=== PATIENT | female | born 1965 | race African-American/Black ===

== ENCOUNTER 2017-02-09 16:17 | Emergency (ER) | payer OTHER ==
[~2017-02-09] VITALS: Ht 172.7 cm; Wt 78.6 kg
[~2017-02-09 16:17] MED LIST: ADULT LOW DOSE81 M1 PO; AUGMENTIN875 MG PO; BENTYL10 MG PO; CIPRO500 MG PO; FLAGYL500 MG PO; GLUCOPHAGE1000 M1 PO; MAXZIDE 37.5 M1 EACH PO; METAMUCIL PACKE1 PKT PO; MICRONASE5 MG PO; SIMVASTATIN40 M1 PO; SYNTHROID PO; SYNTHROID175 MCG PO; ZESTRIL,PRINIVIL5 MG PO; ZOFRAN ODT4 MG PO
[2017-02-09 18:12] LABS: HEMATOCRIT 40.2 % (36.0-46.0); MCH 28.8 PG (29.0-34.0); MCHC 34.6 G/DL (30.0-36.0); MCV 83.4 FL (83-99); MEAN PLAT.VOLUME 10.1 uM^3 (9.5-12.4); PLATELET COUNT 334 K/uL (156-360); RBC DIS.WIDTH-SD 36.1 % (39-53); RED BLOOD COUNT 4.82 M/uL (3.80-5.20)
[2017-02-09 18:24] LABS: CHLORIDE 102 mEq/L (99-109); POTASSIUM 3.6 mEq/L (3.7-5.4); SODIUM 136 mEq/L (136-147)
[2017-02-09 18:26] LABS: GLUCOSE 314 mg/dL (70-99)
[2017-02-09 18:27] LABS: ANION GAP 11 MEQ/L (2-14)
[2017-02-09 18:30] LABS: GFR ESTIMATE (CALCULATED) > 59 mL/min/
[2017-02-09 18:31] LABS: UREA NITROGEN (BUN) 11 mg/dL (9-23)
[2017-02-09] MEDS ORDERED: BENTYL20 MG PO (23:26)
[2017-02-09] MEDS ORDERED: FLAGYL500 MG PO (23:26)
[2017-02-09 23:49] VITALS: BP 171/84
== END 2017-02-09 23:50 | disposition home or self-care (01) ==
LOC: EME 16:17
DX: R10.10 Upper abdominal pain, unspecified (principal); K92.1 Melena; R19.7 Diarrhea, unspecified; R42 Dizziness and giddiness; I10 Essential (primary) hypertension; E11.9 Type 2 diabetes mellitus without complications; E03.9 Hypothyroidism, unspecified; E78.00 Pure hypercholesterolemia, unspecified; Z90.710 Acquired absence of both cervix and uterus
CPT/HCPCS: 74177; 80048; 85027; 86850; 86900; 86901; 99281; 99285; J2405; J7030

== ENCOUNTER → 2017-05-20 | Outpatient (CLI) | payer OTHER ==
[~2017-05-20] VITALS: Ht 172.7 cm; Wt 78.0 kg
[~2017-05-20] MED LIST changes: +BENTYL20 MG PO; +CINNAMON500 MG PO; +GARLIC1 MG PO; +GLUCOPHAGE1000 MG PO; +LANTUS 3 M100 UNITS1 SC; +TURMERIC500 M1 PO; +VITAMIN D31000 UNIT PO; +ZOCOR40 MG PO
[2017-05-20 09:44] LABS: EOSINOPHIL (%) 1.2 % (0-5); EOSINOPHIL COUNT 0.1 K/uL (0-0.3); HEMATOCRIT 37.6 % (36.0-46.0); IMMATURE GRANULOCYTE (%) 0.2 % (0.0-0.7); INSTRUMENT ABS NEUTROPHIL CT 2.7 K/uL; LYMPHOCYTE COUNT 1.9 K/uL (1.0-2.8); MCH 28.7 PG (29.0-34.0); MCHC 34.6 G/DL (30.0-36.0); MEAN PLAT.VOLUME 10.2 uM^3 (9.5-12.4); MONOCYTE (%) 8.3 % (3-12); MONOCYTE COUNT 0.4 K/uL (0-0.8); NEUTROPHIL (%) 52.5 % (45-76); NEUTROPHIL COUNT 2.7 K/uL (1.8-6.4); PLATELET COUNT 312 K/uL (156-360); RBC DIS.WIDTH-CV 12.1 % (11.8-14.6); RBC DIS.WIDTH-SD 37.1 % (39-53); RED BLOOD COUNT 4.53 M/uL (3.80-5.20); WHITE BLOOD COUNT 5.1 K/uL (4.1-10.2)
[2017-05-20 09:47] LABS: POINT-OF-CARE METER ID UU13113694
[2017-05-20 09:54] LABS: PROTHROMBIN TIME 10.3 (9.2-11.2); PTT 24.9 (25-32)
[2017-05-23 12:41] LABS: Flow Number of Markers 22 (()); Flow Spec Viability 94 % (()); Flow Specimen Type BONE MARROW (())
== END | disposition home or self-care (01) ==
LOC: OPR 05-19 10:00 → EDSTATUS 09:00 → OPR 09:00
PROVIDERS: Internal Medicine Medical Oncology
DX: C82.90 Follicular lymphoma, unspecified, unspecified site (principal); I10 Essential (primary) hypertension; E11.9 Type 2 diabetes mellitus without complications; E78.1 Pure hyperglyceridemia; E03.9 Hypothyroidism, unspecified; Z86.010 Personal history of colon polyps; Z87.891 Personal history of nicotine dependence; Z79.84 Long term (current) use of oral hypoglycemic drugs
CPT/HCPCS: 77012; 82948; 85007; 85025; 85610; 85730; 85999; 88184 90; 88185 90; 88189 90; J3010

== ENCOUNTER 2017-12-23 16:43 | Emergency (ER) | payer OTHER ==
[~2017-12-23] VITALS: Ht 171.4 cm; Wt 79.9 kg
[2017-12-23 20:41] LABS: HEMATOCRIT 39.8 % (36.0-46.0); MCH 29.5 PG (29.0-34.0); MCHC 35.2 G/DL (30.0-36.0); NRBC (%) 0.3 /100 WBC (0-0); PLATELET COUNT 330 K/uL (156-360); RBC DIS.WIDTH-CV 12.3 % (11.8-14.6); RBC DIS.WIDTH-SD 37.6 % (39-53); RED BLOOD COUNT 4.74 M/uL (3.80-5.20); WHITE BLOOD COUNT 5.8 K/uL (4.1-10.2)
[2017-12-23 20:42] LABS: CARBON DIOXIDE (BICARBONATE) 28.6 MEQ/L (20-31)
[2017-12-23 20:43] LABS: APPEARANCE SL.HAZY ((CLEAR)); BILIRUBIN NEGATIVE; BLOOD NEGATIVE; COLOR YELLOW ((YELLOW)); GLUCOSE (STRIP) >=500; KETONES 5; LEUKOCYTES NEGATIVE; NITRITE POSITIVE; PROTEIN (STRIP) 100; SPECIFIC GRAVITY 1.029 (1.000-1.030); UROBILINOGEN 0.2 MG/DL (0.2-1.0)
[2017-12-23 20:49] LABS: ALBUMIN 4.4 g/dL (3.2-4.8); CHLORIDE 102 mEq/L (99-109); SODIUM 136 mEq/L (136-147)
[2017-12-23 20:52] LABS: GLUCOSE 266 mg/dL (70-99); TOTAL PROTEIN 8.3 g/dL (6.4-8.3)
[2017-12-23 20:54] LABS: TOTAL BILIRUBIN 0.4 mg/dL (0.0-1.0)
[2017-12-23 20:55] LABS: ALKALINE PHOSPHATASE 72 IU/L (3-129); CREATININE 0.8 mg/dL (0.6-1.3); GFR ESTIMATE (CALCULATED) > 59 mL/min/
[2017-12-23 20:56] LABS: BACTERIA RARE /HPF; EPITHELIAL CELLS RARE /HPF; MUCUS TRACE /LPF; RED BLOOD CELLS 0-5 /HPF (0-5); UCUL ADDED? NO; WHITE BLOOD CELLS 0-5 /HPF (0-5)
[2017-12-23 20:56] LABS: UREA NITROGEN (BUN) 13 mg/dL (9-23)
[2017-12-23 20:57] LABS: AST (GOT) 18 IU/L (2-34)
[2017-12-23 20:58] LABS: ALT (GPT) 21 IU/L (3-49)
[2017-12-23] MEDS ORDERED: KEFLEX500 MG PO (21:13)
[2017-12-23 21:51] VITALS: BP 170/96
== END 2017-12-23 21:52 | disposition home or self-care (01) ==
LOC: EME 16:43 → RME 16:43
PROVIDERS: Physician Assistant
DX: E11.65 Type 2 diabetes mellitus with hyperglycemia (principal); N39.0 Urinary tract infection, site not specified; Z91.14 Patient's other noncompliance with medication regimen; Z79.84 Long term (current) use of oral hypoglycemic drugs; C85.90 Non-Hodgkin lymphoma, unspecified, unspecified site; E03.9 Hypothyroidism, unspecified
CPT/HCPCS: 80053; 81003; 82010; 82803; 82948; 85027; 99281; 99284; J7030